=== PATIENT | female | born 1970 | race African-American/Black ===

== ENCOUNTER 2016-12-07 15:41 | Emergency (ER) | payer SELFPAY | END 2016-12-07 17:11 | disposition home or self-care (01) | LOC: MADERS 15:41 | DX: L03.116 Cellulitis of left lower limb (principal); I10 Essential (primary) hypertension; Z79.899 Other long term (current) drug therapy ==

== ENCOUNTER 2017-01-07 08:33 | Emergency (ER) | payer SELFPAY ==
[2017-01-07] MEDS ORDERED: Lidocaine 1% 20 ML MDV ONE (08:49)
[2017-01-07] MEDS ORDERED: traMADol HCl 50 MG TAB ONE (08:57)
== END 2017-01-07 09:06 | disposition home or self-care (01) ==
LOC: MADERS 08:33
DX: M62.830 Muscle spasm of back (principal); L73.9 Follicular disorder, unspecified; I10 Essential (primary) hypertension; Z79.899 Other long term (current) drug therapy
CPT/HCPCS: 10060; J2001

== ENCOUNTER 2017-09-16 17:14 | Emergency (ER) | payer SELFPAY ==
[2017-09-16 18:46] LABS: Bilirubin Negative (Negative); Blood, Urine Small (Negative); Glucose, Urine (Dipstick) Negative (Negative); Leukocyte Negative (Negative); Nitrite Negative (Negative); Protein, Urine (Dipstick) Negative (Neg-Trace); Urobilinogen 0.2 mg/dL (0.2-1.0)
[2017-09-16 18:49] LABS: Clarity Hazy (Clear); Specific Gravity, Urine 1.015 (1.005-1.030); WBC/HPF 0-3 HPF (0-3)
[2017-09-16 18:50] LABS: Bacteria/HPF 2+ HPF (None Seen)
== END 2017-09-16 19:20 | disposition home or self-care (01) ==
LOC: MADERS 17:14
DX: M54.5 Low back pain (principal); I10 Essential (primary) hypertension; Z79.899 Other long term (current) drug therapy
CPT/HCPCS: 81001; 87086; 99283

== ENCOUNTER 2019-05-16 04:50 | Emergency (ER) | payer SELFPAY ==
[2019-05-16] MEDS ORDERED: Lidocaine 1% w/Epinephrine 1:100K 20 ML VIAL ONE (05:24)
[2019-05-16] MEDS ORDERED: Sodium Chloride Irrig Solution 250 ML BOT ONE (06:24)
== END 2019-05-16 05:58 | disposition home or self-care (01) ==
LOC: MADERS 04:50
DX: L72.3 Sebaceous cyst (principal); I10 Essential (primary) hypertension
CPT/HCPCS: 10060; J2001

== ENCOUNTER 2020-02-20 05:15 | Emergency (ER) | payer OTHER, SELFPAY ==
[2020-02-20] MEDS ORDERED: Ibuprofen 800 MG TAB ONE (06:07)
[2020-02-20] MEDS ORDERED: Dexamethasone 4 mg/ml Vial ONE (06:07)
[2020-02-20] MEDS ORDERED: Dexamethasone 4 MG TAB ONE (06:07)
--- NOTE | 2020-02-20 07:45 | RAD ---
Exam:3 views left HISTORY: Pain. Injury COMPARISON: None FINDINGS: Lisfranc is maintained. Preserved joint spaces. Nondisplaced fracture involving the proxima l phalanx of the fifth digit. Additional fractures are not appreciated. IMPRESSION: Nondisplaced fracture involving the proximal phalanx of the fifth digit. CODE T
== END 2020-02-20 06:20 | disposition home or self-care (01) ==
LOC: MADERS 05:15
DX: M25.572 Pain in left ankle and joints of left foot (principal); I10 Essential (primary) hypertension; Z79.899 Other long term (current) drug therapy; W22.8XXA Striking against or struck by other objects, initial encounter
CPT/HCPCS: J1100; J8540

== ENCOUNTER 2020-03-10 15:44 | Emergency (ER) | payer OTHER, SELFPAY ==
[~2020-03-10 15:44] MED LIST: Sodium Chloride 0.9% 1,000 ML BAG ONE; Sodium Chloride 0.9% 100 ML BAG ONE
[2020-03-10] MEDS ORDERED: Iopamidol 370 76% 125 ML VIAL FS ONE (15:45)
[2020-03-10] MEDS ORDERED: Acetaminophen 500 MG TAB ONE (16:03)
[2020-03-10] MEDS ORDERED: Ibuprofen 800 MG TAB ONE (16:03)
[2020-03-10 16:48] LABS: #Lymphocytes 0.8 thou/uL (1.20-3.40); #Monocytes 0.4 thou/uL (0.11-0.59); #Neutrophils 8.3 thou/uL (1.40-6.50); %Basophils 0.2 % (0.0-1.0); %Lymphocytes 8.5 % (21.0-51.0); %Monocytes 3.7 % (0.0-10.0); %Neutrophils 87.5 % (42.0-75.0); Hemoglobin 13.1 g/dL (12.0-16.0); Mean Corpuscular HGB CONC 30.9 g/dL (32.0-36.0); Mean Corpuscular Hemoglobin 25.6 pg (27.0-31.0); Mean Corpuscular Volume 82.9 fL (78.0-98.0); Platelet Count 218 thou/uL (130-400); RBC Distribution Width 11.7 % (11.5-14.5); Red Blood Cell (RBC) Count 5.12 mill/uL (4.20-5.40); White Blood Cell (WBC) Count 9.4 thou/uL (4.8-10.8)
--- NOTE | 2020-03-10 16:54 | RAD ---
Exam: Chest one view HISTORY:Dyspnea Comparison: 09/09/2012 FINDINGS: Cardiac silhouette: Normal Aorta: Unremarkable Pulmonary vessels: Normal Costophrenic angles: Clear LUNGS: Possible bibasilar opacities which may in part be due to diminished lung volumes. Pneumothorax: None Osseous abnormalities: None IMPRESSION: Diminished lung volumes. Bibasilar opacities may represent atelectasis. Infiltrate and/or aspiration cannot be excluded.
[2020-03-10 17:07] LABS: ALT (SGPT) 24 U/L (8-55); AST (SGOT) 29 U/L (5-34); Alkaline Phosphatase 91 U/L (40-110); Anion Gap 19 mmol/L (10-20); BUN (Urea Nitrogen) 8 mg/dL (7.0-18.7); Bilirubin, Total 0.5 mg/dL (0.2-1.2); CK (CPK) 39 U/L (29-168); Calc. Creatinine Clearance 0 mL/min (70-130); Calcium 9.1 mg/dL (7.8-10.44); Carbon Dioxide 20 mmol/L (22-29); Chloride 105 mmol/L (98-107); Globulin 4.1 g/dL (2.4-3.5); Glucose 125 mg/dL (70-105); Lipase 5 U/L (8-78); Protein, Total 8.1 g/dL (6.0-8.3); Sodium 141 mmol/L (136-145)
[2020-03-10] MEDS ORDERED: Cefepime 2 GM VIAL ONE (17:08)
[2020-03-10] MEDS ORDERED: Sodium Chloride 0.9% 100 ML ONE (17:08)
[2020-03-10] MEDS ORDERED: Aspirin Chewable 81 MG TAB ONE (18:00)
[2020-03-10] MEDS ORDERED: Vancomycin 1.5 GRAM/300 ML BAG ONE (18:00)
--- NOTE | 2020-03-10 18:56 | CT ---
CTA Angio Chest W WO Con 03/10/2020 5:12 PM Indication: Dyspnea with elevated d-dimer and chest pain Technique: Multiple CTA images were obtained of the thorax with IV contrast. 3-D rendering: MIP hunter nstructed images were created and reviewed. Comparison: No relevant prior studies available. Findings: Pulmonary arteries: No central or segmental pulmonary embolus is evident. Heart and Aorta: Normal appearing. Mediastinum:There are scattered calcified lymph nodes within the mediastinum Lungs:There are bilateral peripheral, subpleural airspace opacities affecting both lungs suspicious f or pneumonia Pleural space: Clear. Upper Abdomen: Prominent fatty liver. The gallbladder is mildly distended. There is calcified granul flako in the spleen. Adrenal glands are normal appearing. There is nonspecific mild left hydronephrosis that is partially imaged. Osseous Structures: No acute osseous abnormality. Soft tissues:No abnormality. Other findings:None. Impression: 1. No central or segmental pulmonary embolus. 2. Bilateral airspace disease suspicious for an atypical pneumonia. This is a pattern that can be see n with Covid 19. Recommend testing 3. Findings of prior granulomatous disease 4. Fatty liver 5. Nonspecific mild left hydronephrosis. Follow-up cross-sectional imaging is recommended. 6. Mild gallbladder distention
[2020-03-11 16:09] LABS: SARS-CoV-2 MS2 Positive; SARS-CoV-2 N Gene Positive; SARS-CoV-2 S Gene Positive; SARS-CoV-2 by NAA DETECTED (NotDetected); SARS-CoV-2 orf1ab Positive
== END 2020-03-10 21:05 | disposition home or self-care (01) ==
LOC: MADERS 15:44
DX: U07.1 COVID-19 (principal); J12.89 Other viral pneumonia; Z20.828 Contact with and (suspected) exposure to other viral communicable diseases; I10 Essential (primary) hypertension; Z79.899 Other long term (current) drug therapy
CPT/HCPCS: 71045; 71275; 80053; 82550; 83605; 83690; 84484; 85025; 85379; 86140; 87040; 87635; 93005; 94760; 96361; 96365; 96366; 96367; J0692; J3370; J3490; J7050; Q9967; U0003

== ENCOUNTER 2020-03-11 11:12 | Emergency (ER) | payer SELFPAY ==
[2020-03-11 12:27] LABS: #Basophils 0.1 thou/uL (0.0-0.2); #Lymphocytes 0.6 thou/uL (1.20-3.40); #Monocytes 0.4 thou/uL (0.11-0.59); #Neutrophils 6.8 thou/uL (1.40-6.50); %Basophils 1.1 % (0.0-1.0); %Eosinophils 0.1 % (0.0-10.0); %Lymphocytes 7.1 % (21.0-51.0); %Monocytes 4.6 % (0.0-10.0); Hemoglobin 12.8 g/dL (12.0-16.0); Mean Corpuscular HGB CONC 31.2 g/dL (32.0-36.0); Mean Corpuscular Hemoglobin 25.9 pg (27.0-31.0); Mean Corpuscular Volume 83.2 fL (78.0-98.0); Platelet Count 238 thou/uL (130-400); RBC Distribution Width 12.1 % (11.5-14.5); Red Blood Cell (RBC) Count 4.92 mill/uL (4.20-5.40); White Blood Cell (WBC) Count 7.8 thou/uL (4.8-10.8)
[2020-03-11 12:42] LABS: ALT (SGPT) 23 U/L (8-55); AST (SGOT) 25 U/L (5-34); Albumin 3.9 g/dL (3.5-5.0); Alkaline Phosphatase 87 U/L (40-110); Anion Gap 17 mmol/L (10-20); BUN (Urea Nitrogen) 7 mg/dL (7.0-18.7); Bilirubin, Total 0.4 mg/dL (0.2-1.2); Calc. Creatinine Clearance 0 mL/min (70-130); Calcium 9.1 mg/dL (7.8-10.44); Carbon Dioxide 20 mmol/L (22-29); Chloride 108 mmol/L (98-107); Estimated GFR-MDRD Greater than 90; Glucose 118 mg/dL (70-105); Potassium 3.1 mmol/L (3.5-5.1); Protein, Total 7.9 g/dL (6.0-8.3); Sodium 142 mmol/L (136-145)
[2020-03-11] MEDS ORDERED: Azithromycin 500 MG VIAL ONE ×2 (12:44→12:48)
[2020-03-11] MEDS ORDERED: Sodium Chloride 0.9% 1,000 ML ONE (12:44)
[2020-03-11] MEDS ORDERED: Sodium Chloride 0.9% 250 ML 250 ML ONE (12:45)
[2020-03-11] MEDS ORDERED: Sodium Chloride 0.9% 500 ML ONE (12:48)
--- NOTE | 2020-03-11 13:02 | RAD ---
Portable frontal chest radiograph: 03/11/2020 COMPARISON: 03/10/2020 HISTORY: Worsening cough with shortness of breath FINDINGS: There is interstitial density in the perihilar regions with hazy groundglass opacity within the medial lung bases, left greater than right, and within the peripheral aspect of the mid right and mid left lung zone, more conspicuous than on the prior chest radiograph performed 03/10/2020. These findings were assessed with a CT of the chest performed 03/10/2020 which demonstrated pulmonary parenchymal opacity suspicious for possible Covid 19 infection. IMPRESSION: Slight interval worsening of bilateral pulmonary parenchymal infiltrates, suspicious for Covid 19 pneumonia.
[2020-03-11] MEDS ORDERED: Potassium Chloride 10 MEQ/100 ML PREMIX BAG ONE (13:33)
== END 2020-03-11 14:35 | disposition short-term general hospital (02) ==
LOC: MADERS 11:12
DX: U07.1 COVID-19 (principal); J12.89 Other viral pneumonia; E87.6 Hypokalemia; I10 Essential (primary) hypertension; Z79.899 Other long term (current) drug therapy; Z79.82 Long term (current) use of aspirin
CPT/HCPCS: 71045; 80053; 83605; 85025; 87040; 96365; 96367; J0456; J3480; J7030; J7050

== ENCOUNTER 2021-03-25 17:53 | Emergency (ER) | payer OTHER, SELFPAY ==
[2021-03-25 20:31] LABS: #Basophils 0.1 thou/uL (0.0-0.2); #Eosinphils 0.1 thou/uL (0.0-0.7); #Lymphocytes 2.5 thou/uL (1.20-3.40); #Monocytes 0.5 thou/uL (0.11-0.59); #Neutrophils 3.8 thou/uL (1.40-6.50); %Basophils 1.6 % (0.0-1.0); %Lymphocytes 35.4 % (21.0-51.0); %Monocytes 6.6 % (0.0-10.0); %Neutrophils 54.4 % (42.0-75.0); Hemoglobin 13.4 g/dL (12.0-16.0); Mean Corpuscular HGB CONC 31.5 g/dL (32.0-36.0); Mean Corpuscular Hemoglobin 26.7 pg (27.0-31.0); Mean Corpuscular Volume 84.9 fL (78.0-98.0); Mean Platelet Volume 8.6 fL (7.4-10.4); Platelet Count 271 thou/uL (130-400); RBC Distribution Width 12.7 % (11.5-14.5); Red Blood Cell (RBC) Count 5.02 mill/uL (4.20-5.40)
[2021-03-25 20:48] LABS: ALT (SGPT) 19 U/L (8-55); AST (SGOT) 20 U/L (5-34); Albumin 4.5 g/dL (3.5-5.0); Alkaline Phosphatase 92 U/L (40-110); Anion Gap 14 mmol/L (10-20); BUN (Urea Nitrogen) 12 mg/dL (9.8-20.1); Bilirubin, Total 0.8 mg/dL (0.2-1.2); Calc. Creatinine Clearance 0 mL/min (70-130); Calcium 9.8 mg/dL (7.8-10.44); Carbon Dioxide 30 mmol/L (22-29); Chloride 103 mmol/L (98-107); Glucose 115 mg/dL (70-105); Lipase 16 U/L (8-78); Protein, Total 7.5 g/dL (6.0-8.3); Sodium 144 mmol/L (136-145)
[2021-03-25 20:55] LABS: Potassium 2.8 mmol/L (3.5-5.1)
[2021-03-25] MEDS ORDERED: Potassium Chloride 20 MEQ TAB ONE (22:25)
== END 2021-03-25 22:37 | disposition left against medical advice (07) ==
LOC: MADERS 17:53
DX: R06.00 Dyspnea, unspecified (principal); M77.01 Medial epicondylitis, right elbow; M17.11 Unilateral primary osteoarthritis, right knee; I10 Essential (primary) hypertension; Z79.899 Other long term (current) drug therapy
CPT/HCPCS: 71046; 80053; 83690; 83880; 84484; 85025; 93005

== ENCOUNTER 2021-10-20 13:27 | Emergency (ER) | payer SELFPAY | END 2021-10-20 14:20 | disposition home or self-care (01) | LOC: MADERS 13:27 | DX: K21.9 Gastro-esophageal reflux disease without esophagitis (principal); I10 Essential (primary) hypertension; Z79.899 Other long term (current) drug therapy | CPT/HCPCS: 99283 ==

== ENCOUNTER 2022-08-18 16:28 | Emergency (ER) | payer BC, SELFPAY | END 2022-08-18 16:55 | disposition home or self-care (01) | LOC: MADERS 16:28 | DX: M54.50 Low back pain, unspecified (principal); I10 Essential (primary) hypertension | CPT/HCPCS: 99283 ==

== ENCOUNTER 2022-10-09 09:40 | Emergency (ER) | payer BC, SELFPAY | END 2022-10-09 10:31 | disposition home or self-care (01) | LOC: MADERS 09:40 | DX: U07.1 COVID-19 (principal); J06.9 Acute upper respiratory infection, unspecified; I10 Essential (primary) hypertension | CPT/HCPCS: 99283; U0003; U0005 ==

== ENCOUNTER 2022-10-23 13:15 | Emergency (ER) | payer OTHER ==
[2022-10-23] MEDS ORDERED: Dexamethasone 10 MG/ML VIAL ONE (14:11)
[2022-10-23] MEDS ORDERED: Ketorolac Tromethamine 60 MG/2 ML VIAL ONE (14:11)
== END 2022-10-23 14:22 | disposition home or self-care (01) ==
LOC: MADERS 13:15
DX: S29.012A Strain of muscle and tendon of back wall of thorax, initial encounter (principal); M62.830 Muscle spasm of back; I10 Essential (primary) hypertension; X50.0XXA Overexertion from strenuous movement or load, initial encounter; Y93.F2 Activity, caregiving, lifting; Y92.69 Other specified industrial and construction area as the place of occurrence of the external cause; Z79.899 Other long term (current) drug therapy
CPT/HCPCS: 96372; 99283; J1100; J1885

== ENCOUNTER 2023-02-15 20:25 | Emergency (ER) | payer OTHER ==
[2023-02-15] MEDS ORDERED: Ondansetron PF 4 MG/2 ML Vial ONE (21:18)
[2023-02-15] MEDS ORDERED: Ketorolac Tromethamine 30 MG/ML VIAL ONE (21:18)
[2023-02-15] MEDS ORDERED: Sodium Chloride 0.9% 2,000 ML ONE (21:18)
[2023-02-15] MEDS ORDERED: Acetaminophen 500 MG TAB ONE (21:18)
[2023-02-15 21:39] LABS: Bacteria/HPF 4+ HPF (None Seen); Bilirubin Negative (Negative); Blood, Urine Moderate (Negative); CAUTI Indications for Culture Dysuria,urgency,freq; Clarity Turbid (Clear); Glucose, Urine (Dipstick) Negative (Negative); Ketone, Urine Negative (Negative); Leukocyte Moderate (Negative); Nitrite Negative (Negative); Protein, Urine (Dipstick) > or equal to 300 mg/dL (Neg-Trace); RBC/HPF Greater than 50 HPF (0-3); Urobilinogen 0.2 mg/dL (Less than 2); WBC/HPF Greater than 50 HPF (0-3)
[2023-02-15 21:40] LABS: Urine Culture Reflex Yes Yes
[2023-02-15 21:44] LABS: PTT 37.2 sec (22.9-36.1); Prothrombin Time 13.7 sec (12.0-14.7)
[2023-02-15 21:45] LABS: D-Dimer Test 0.42 *mcg/mL (0.27-0.43)
[2023-02-15 21:53] LABS: Band 2 % (5-11); Eosinophils 2 % (0-10); Lymphocytes 22 % (21-51); MDiff Complete? YES; Mean Corpuscular Hemoglobin 27.5 pg (27.0-31.0); Mean Corpuscular Volume 83.5 fl (78.0-98.0); Mean Platelet Volume 9.7 fL (7.4-10.4); Monocytes 4 % (0-10); Neutrophil 70 % (42-75); Platelet Adequacy Comment Appears Adequate; Platelet Count 308 10x3/uL (130-400); RBC Distribution Width 12.5 % (11.5-14.5); Red Blood Cell (RBC) Count 5.09 mill/uL (4.20-5.40)
[2023-02-15 21:54] LABS: ALT (SGPT) 16 U/L (8-55); AST (SGOT) 19 U/L (5-34); Albumin 4.7 g/dL (3.5-5.0); Alkaline Phosphatase 97 U/L (40-110); Anion Gap 14 mmol/L (10-20); BUN (Urea Nitrogen) 15 mg/dL (9.8-20.1); Bilirubin, Total 0.7 mg/dL (0.2-1.2); Calc. Creatinine Clearance 0 mL/min (70-130); Calcium 10.1 mg/dL (7.8-10.44); Carbon Dioxide 27 mmol/L (22-29); Chloride 105 mmol/L (98-107); Estimated GFR 79; Globulin 3.4 g/dL (2.4-3.5); Glucose 125 mg/dL (70-105); Lipase 18 U/L (8-78); Potassium 2.9 mmol/L (3.5-5.1); Protein, Total 8.1 g/dL (6.0-8.3); Sodium 143 mmol/L (136-145)
[2023-02-15] MEDS ORDERED: Potassium Chloride 20 MEQ TAB ONE (22:04)
[2023-02-15] MEDS ORDERED: cefTRIAXone (ROCEPHIN) 2 GM VIAL ONE (22:04)
[2023-02-15] MEDS ORDERED: Sodium Chloride 0.9% 100 ML ONE (22:04)
[2023-02-15 22:25] LABS: Magnesium 1.8 mg/dL (1.6-2.6)
== END 2023-02-15 22:35 | disposition home or self-care (01) ==
LOC: MADERS 20:25
DX: N10 Acute pyelonephritis (principal); E87.6 Hypokalemia; I10 Essential (primary) hypertension; Z20.822 Contact with and (suspected) exposure to COVID-19
CPT/HCPCS: 71045; 80053; 81001; 83605; 83690; 83735; 84484; 85025; 85379; 85610; 85730; 87040; 87077; 87081; 87086; 87186; 87430; 87635; 87804; 93005; 94760; 96361; 96365; 96375; J0696; J1885; J2405; J7050

== ENCOUNTER 2023-09-07 08:38 | Emergency (ER) | payer OTHER | END 2023-09-07 09:22 | disposition home or self-care (01) | LOC: MADERS 08:38 | DX: B34.9 Viral infection, unspecified (principal); I10 Essential (primary) hypertension; Z79.899 Other long term (current) drug therapy | CPT/HCPCS: 99283 ==

== ENCOUNTER 2023-10-25 16:49 | Emergency (ER) | payer OTHER ==
[2023-10-25 17:39] LABS: SARS-CoV-2 NAA Rapid Test DETECTED (NotDetected)
== END 2023-10-25 17:48 | disposition home or self-care (01) ==
LOC: MADERS 16:49
DX: U07.1 COVID-19 (principal); I10 Essential (primary) hypertension; Z79.899 Other long term (current) drug therapy
CPT/HCPCS: 99283; U0002